=== PATIENT | male | born 1985 | race Caucasian/White ===

== ENCOUNTER 2018-02-08 15:46 | Emergency (ER) | payer SELFPAY ==
--- NOTE | 2018-02-08 16:13 | PDOC ---
Rapid Medical Evaluation Chief Complaint: Injury Time Seen by Provider: 02/08/18 16:09 Medical Evaluation: Allergies Allergy/AdvReac Type Severity Reaction Status Date / Time No Known Allergies Allergy Verified 02/08/18 16:08 02/08/18 16:09 The patient presents with a chief complaint of: Chabnging tire and jorge alberto got loose and landed on his finger, right hand, index and middle finger. two days ago incident happened. He is a diabetic, the pain is getting worse so he came in for evaluation. Was taking tylenol for pain last dose tuesday. I have performed a brief in-person evaluation of this patient; Pertinent physical exam findings: rigth hand wit6h middle finger swollen, cut, painful to touch, ambulatory, in no respiratory distress I have ordered the following: hand xray. The patient will proceed to the ED for further evaluation.
[2018-02-08 16:14] VITALS: BP 137/89; PULSE 100; TEMP 97.8; BMI 24.7
[2018-02-08] MEDS ORDERED: BACITRACIN 15 GM TUBE TOPICAL OINTMENT ONE (16:46)
[2018-02-08] MEDS ORDERED: DIPHTH,PERTUSS(ACELL),TET 0.5 ML DISP.SYRIN IM ONE ×2 (16:53→17:02)
[2018-02-08] MEDS ORDERED: BACITRACIN 15 GM TUBE TOPICAL OINTMENT TP ONE (16:53)
--- NOTE | 2018-02-08 17:02 | PDOC ---
History of Present Illness - General Chief Complaint: Injury Stated Complaint: FINGER INJURY Time Seen by Provider: 02/08/18 16:09 History Source: Patient Exam Limitations: No Limitations - History of Present Illness Initial Comments: 02/08/18 was changing tire of his car, when the jorge alberto collapsed and crushed his second and third digit of his right distal fingers 2 days ago. used some ice and some Tylenol with minimal resolved. Denies numbness or tingling to fingertips, has not been sensationally painful therefore did not seek attention in the emergency department. Patient has diabetes however has not taken his meds muller for some weeks due to change in living arrangements and move to [place] from [place] his last tetanus status. Severity: reports: mild, moderate Pain Location: reports: upper extremity Associated Symptoms (Fall): denies symptoms Past History - Travel Traveled outside of the country in the last 30 days: No (right second and third digits) Close contact w/someone who was outside of country & ill: No - Past Medical History Allergies/Adverse Reactions: Allergies Allergy/AdvReac Type Severity Reaction Status Date / Time No Known Allergies Allergy Verified 02/08/18 16:08 Home Medications: Ambulatory Orders Metformin HCl [Glucophage] 500 mg PO DAILY #14 tablet 02/08/18 Cardiac Disorders: Yes (HEART MUMMUR) COPD: No DVT: No Dementia: No Diabetes: Yes - Immunization History Immunization Up to Date: Yes - Suicide/Smoking/Psychosocial Hx Smoking History: Current every day smoker Number of Cigarettes Smoked Daily: 10 Information on smoking cessation initiated: No Hx Alcohol Use: No Drug/Substance Use Hx: No Substance Use Type: None Review of Systems - Review of Systems Able to Perform ROS?: Yes Is the patient limited Slovak proficient: Yes Constitutional: Yes: See HPI. No: Symptoms Reported, Fever, Malaise HEENTM: No: Symptoms Reported Respiratory: No: Symptoms reported Musculoskeletal: Yes: Symptoms Reported, See HPI, Joint Pain Integumentary: Yes: Symptoms Reported, See HPI, Bruising Neurological: No: Symptoms reported All Other Systems: Reviewed and Negative *Physical Exam - Vital Signs Last Vital Signs Temp Pulse Resp BP Pulse Ox 97.8 F 100 H 15 137/89 98 02/08/18 16:09 02/08/18 16:09 02/08/18 16:09 02/08/18 16:09 02/08/18 16:09 - Physical Exam General Appearance: Yes: Nourished, Appropriately Dressed, Apparent Distress, Mild Distress HEENT: positive: MAYCO, Normal ENT Inspection, TMs Normal Respiratory/Chest: positive: Lungs Clear, Normal Breath Sounds Gastrointestinal/Abdominal: positive: Soft Musculoskeletal: positive: Normal Inspection. negative: Vertebral Tenderness Extremity: positive: Normal Capillary Refill, Normal Range of Motion Integumentary: positive: Ecchymosis, Bruising, Other (patient with swollen, healing ecchymotic distal right second and third distal digits with less than 50 % subungual hematomas. Range of motion is intact and patient reports sensation intact.) Neurologic: positive: cvicu nurse II-XII NML intact, Fully Oriented, Alert, Normal Mood/ Affect, Normal Response, Motor Strength 5/5 Progress Note - Progress Note Progress Note: Crush injury with distal tuft comminuted fractures of digits 2 and 3 of right hand with 50% or less subungual hematomas to both wounds. As incident occurred 48 hours ago and there is no evidence of infection, will hold antibiotics RX. Tetanus/diphtheria/pertussis booster was updated today. *DC/Admit/Observation/Transfer Diagnosis at time of Disposition: Crush injury to finger Qualifiers: Encounter type: initial encounter Qualified Code(s): S67.10XA - Crushing injury of unspecified finger(s), initial encounter - Discharge Dispostion Disposition: HOME Condition at time of disposition: Stable Admit: No - Prescriptions Prescriptions: Metformin HCl [Glucophage] 500 mg PO DAILY #14 tablet - Referrals - Patient Instructions Printed Discharge Instructions: DI for Crush Injury Additional Instructions: Rest, ice to area on and off for 15 minutes 4-6 times a day Avoid heavy lifting or exercise until pain and swelling is resolved or until further directed Keep area highly elevated to reduce swelling Use splints/Cesar wrap as directed Wash hands 2-3 times daily and reapply bacitracin ointment with splints until healed Turn immediately to emergency Department for worsening redness, swelling, immobility, evidence of infection or fever. Your tetanus/diphtheria/pertussis booster was updated today Followup with orthopedist in one to 2 days if not improving, if significantly improved may wait one week for followup with orthopedist May use ibuprofen 2-200 mg tablets every 6 hours as needed for pain - Post Discharge Activity
== END 2018-02-08 17:21 | disposition home or self-care (01) ==
LOC: JER 15:46
PROC: 2W3JX1Z Immobilization of Right Finger using Splint (ICD-10-PCS; principal; 2018-02-08)
DX: S67.192A Crushing injury of right middle finger, initial encounter (principal); W20.8XXA Other cause of strike by thrown, projected or falling object, initial encounter; Y93.89 Activity, other specified; Y92.9 Unspecified place or not applicable; F17.210 Nicotine dependence, cigarettes, uncomplicated; E11.9 Type 2 diabetes mellitus without complications; R01.1 Cardiac murmur, unspecified
CPT/HCPCS: 73130-TC-RT-FY; 90715; 99281-25

== ENCOUNTER 2018-10-11 19:25 | Emergency (ER) | payer SELFPAY ==
--- NOTE | 2018-10-11 19:43 | PDOC ---
Rapid Medical Evaluation Time Seen by Provider: 10/11/18 19:30 Medical Evaluation: Allergies Allergy/AdvReac Type Severity Reaction Status Date / Time No Known Allergies Allergy Verified 05/06/18 01:58 10/11/18 19:37 I have performed a brief in-person evaluation of this patient. The patient presents with a chief complaint of: upper back pain Pertinent physical exam findings: Lungs CTAB. ~2.5cm superficial avulsion lac to dorsum of right hand. FROM fingers. I have ordered the following: CXR The patient will proceed to the ED for further evaluation. Discharge Disposition - Diagnosis Laceration - Referrals - Patient Instructions - Post Discharge Activity
[2018-10-11 19:44] VITALS: BP 148/86; PULSE 104; TEMP 97.8; BMI 34.7
--- NOTE | 2018-10-11 20:02 | PDOC ---
History of Present Illness - General Chief Complaint: Respiratory Stated Complaint: cough and upper back pain Time Seen by Provider: 10/11/18 19:30 - History of Present Illness Initial Comments: 10/11/18 19:57 33-year-old male with a past medical history significant for type 2 diabetes. He states he's been off his meds for 3 months he recently moved and has been asymptomatic for his diabetes. 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 He also has upper back pain from a cough he's had for 3 days without systemic symptoms Past History - Past Medical History Allergies/Adverse Reactions: Allergies Allergy/AdvReac Type Severity Reaction Status Date / Time No Known Allergies Allergy Verified 10/11/18 19:45 Home Medications: Ambulatory Orders NK [No Known Home Medication] 10/11/18 Cardiac Disorders: Yes (HEART MUMMUR) COPD: No DVT: No Dementia: No Diabetes: Yes (niddm no meds x 1 month ran out) - Immunization History Immunization Up to Date: Yes - Suicide/Smoking/Psychosocial Hx Smoking History: Never smoked Have you smoked in the past 12 months: No Number of Cigarettes Smoked Daily: 10 Information on smoking cessation initiated: No Hx Alcohol Use: No Drug/Substance Use Hx: No Substance Use Type: None Review of Systems - Review of Systems Constitutional: No: Chills, Fever, Malaise, Night Sweats Respiratory: Yes: Cough. No: Shortness of Breath, Wheezing Cardiac (ROS): No: Chest Pain Musculoskeletal: Yes: See HPI, Back Pain, Muscle Pain *Physical Exam - Vital Signs Last Vital Signs Temp Pulse Resp BP Pulse Ox 97.8 F 104 H 16 148/86 100 10/11/18 19:40 10/11/18 19:40 10/11/18 19:40 10/11/18 19:40 10/11/18 19:40 - Physical Exam Comments: 10/11/18 19:58 HEAD: NC/AT EYES: Conjuntiva clear Ears: Canals and TM's normal NOSE: No d/c THROAT: Moist mucous membrances, oral pharanx clear, uvula midline NECK: Supple without adenopathy CARDIAC: S1 S2 LUNGS: CTA Full and Equal breath sounds ABDOMEN: Soft NT ND MS: Full ROM in all joints without edema NEUROLOGIC: No gross sensory or motor deficits, NVID SKIN: Normal color and temperature no lesions or rashes There is a 2 cm soft tissue dermal avulsion at the dorsum of the right hand exposing dermis. No 7 cutaneous fat is exposed. The edges cannot be approximated it is an irregular shaped dermal avulsion. There are no gross sensorimotor deficits in the right hand Medical Decision Making - Medical Decision Making 10/11/18 19:58 Upper respiratory infection and right hand dermal avulsion, I will treat with rest wet-to-dry dressing changes and follow-up with hand surgery and I will provide an internal medicine physician for him to evaluated and reassessed 10/11/18 20:02 X-rays of the chest are normal. X-rays of the hand show old tuft fractures of the second and third fingers *DC/Admit/Observation/Transfer Diagnosis at time of Disposition: Soft tissue avulsion, URI (upper respiratory infection) Diagnosis at time of Disposition: (Ruled Out): Laceration - Discharge Dispostion Disposition: HOME Condition at time of disposition: Stable Decision to Admit order: No - Referrals Referrals: Eric Padilla MD [Staff Physician] - Parker Madden MD [Staff Physician] - - Patient Instructions Printed Discharge Instructions: Common Cold, DI for Viral Upper Respiratory Infection -- Adult Additional Instructions: Return to the emergency room should symptoms worsen or go unresolved. Please follow-up with internal medicine for evaluation of your cough. Hand surgery for wound evaluation of your right hand. To wet-to-dry Varsha changes as you have shown today in the emergency room need should be changed twice a day for the next 3 days please follow-up with hand surgery in 3 days if she cannot follow- up with hand surgery in 3 days return to the emergency room for recheck. Return to the emergency room sooner if problems develop. - Post Discharge Activity
== END 2018-10-11 20:49 | disposition home or self-care (01) ==
LOC: JERFT 19:25
DX: S60.511A Abrasion of right hand, initial encounter (principal); J06.9 Acute upper respiratory infection, unspecified; R01.1 Cardiac murmur, unspecified; E11.9 Type 2 diabetes mellitus without complications
CPT/HCPCS: 71046-TC-FY; 73130-TC-RT-FY; 99281-25

== ENCOUNTER 2018-10-21 21:14 | Emergency (ER) | payer SELFPAY ==
[2018-10-21 21:19] VITALS: BP 169/80; PULSE 96; TEMP 98.5; BMI 33.9
[2018-10-21] MEDS ORDERED: KETOROLAC TROMETHAMINE 60 MG/2 ML VIAL IM ONE (21:30)
[2018-10-21] MEDS ORDERED: KETOROLAC TROMETHAMINE 60 MG/2 ML VIAL ONE (21:36)
--- NOTE | 2018-10-21 21:39 | PDOC ---
History of Present Illness - General Chief Complaint: Back Pain Stated Complaint: BACK PAIN Time Seen by Provider: 10/21/18 21:24 History Source: Patient Exam Limitations: No Limitations - History of Present Illness Initial Comments: 10/21/18 21:30 33 yr male history of back spasms presents to ER with mid back pain for 2-3 months worse with movement and bending down. Pt recently relocated from [place] to [place]. Pt has history of DM, PFO (being monitored) denies fever, chills , neg diarrhea or vomiting. no chest pain. no urinary complaints. Past History - Past Medical History Allergies/Adverse Reactions: Allergies Allergy/AdvReac Type Severity Reaction Status Date / Time No Known Allergies Allergy Verified 10/21/18 21:19 Home Medications: Ambulatory Orders Cyclobenzaprine HCl [Flexeril -] 10 mg PO TID PRN #21 tablet 10/21/18 Naproxen [Naprosyn] 500 mg PO BID PRN #20 tablet 10/21/18 Cardiac Disorders: Yes (HEART MUMMUR) COPD: No DVT: No Dementia: No Diabetes: Yes (niddm no meds x 1 month ran out) - Immunization History Immunization Up to Date: Yes - Suicide/Smoking/Psychosocial Hx Smoking History: Never smoked Have you smoked in the past 12 months: No Number of Cigarettes Smoked Daily: 10 Information on smoking cessation initiated: No Hx Alcohol Use: No Drug/Substance Use Hx: No Substance Use Type: None Trauma Specific PMHX - Complaint Specific PMHX Arthritis: No Back Injury: No Neck Injury: No Hx Sacro Iliac Joint Dysfunction: No Review of Systems - Review of Systems Able to Perform ROS?: Yes Is the patient limited Greenlandic proficient: Yes Constitutional: No: Symptoms Reported HEENTM: No: Symptoms Reported Respiratory: No: Symptoms reported Cardiac (ROS): No: Symptoms Reported ABD/GI: No: Symptoms Reported : No: Symptoms Reported, Flank Pain Musculoskeletal: Yes: Symptoms Reported, Back Pain *Physical Exam - Vital Signs Last Vital Signs Temp Pulse Resp BP Pulse Ox 98.5 F 96 H 16 169/80 100 10/21/18 21:16 10/21/18 21:16 10/21/18 21:16 10/21/18 21:16 10/21/18 21:16 - Physical Exam General Appearance: Yes: Nourished, Appropriately Dressed HEENT: positive: EOMI, MAYCO, Normal ENT Inspection, TMs Normal, Pharynx Normal Neck: positive: Supple. negative: Tender Respiratory/Chest: positive: Lungs Clear, Normal Breath Sounds. negative: Chest Tender Cardiovascular: positive: Regular Rhythm, Regular Rate Gastrointestinal/Abdominal: positive: Normal Bowel Sounds, Soft. negative: Distended Musculoskeletal: positive: Normal Inspection, Muscle Spasm (thoracic paraspinal soft tissue spasm, reproduced with "stretching" bending forward). negative: CVA Tenderness, CVA Tenderness (R), CVA Tenderness (L), Vertebral Tenderness Medical Decision Making - Medical Decision Making 10/21/18 21:32 cc: chronic back pain will give toradol now dc home with flexeril and naprosyn labs and ct abd reviewed from previous visits strict follow up, pt has apt next week with a primary care in [place]. dc inst discussed all questions asked and answered 10/21/18 21:43 *DC/Admit/Observation/Transfer Diagnosis at time of Disposition: Chronic back pain Qualifiers: Back pain location: thoracic back pain Back pain laterality: bilateral Qualified Code(s): M54.6 - Pain in thoracic spine - Discharge Dispostion Disposition: HOME Condition at time of disposition: Good - Prescriptions Prescriptions: Cyclobenzaprine HCl [Flexeril -] 10 mg PO TID PRN #21 tablet PRN Reason: Muscle Spasms Naproxen [Naprosyn] 500 mg PO BID PRN #20 tablet PRN Reason: Back Pain - Referrals - Patient Instructions Additional Instructions: avoid any heavy lifting or bending take the medication as prescribed follow up with your doctor as planned return to ER for any worsening symptoms - Post Discharge Activity
== END 2018-10-21 21:53 | disposition home or self-care (01) ==
LOC: JERFT 21:14
PROC: 3E0233Z Introduction of Anti-inflammatory into Muscle, Percutaneous Approach (ICD-10-PCS; principal; 2018-10-21)
DX: M54.6 Pain in thoracic spine (principal); G89.29 Other chronic pain; E11.9 Type 2 diabetes mellitus without complications; Z91.14 Patient's other noncompliance with medication regimen
CPT/HCPCS: 99281-25

== ENCOUNTER 2018-12-23 17:56 | Emergency (ER) | payer SELFPAY ==
[2018-12-23 18:13] VITALS: BMI 33.9
[2018-12-23] MEDS ORDERED: SODIUM CHLORIDE 0.9% 1000 ML INFUS.BAG IV ONE (19:05)
--- NOTE | 2018-12-23 19:19 | PDOC ---
History of Present Illness - General Chief Complaint: Blood Sugar Problem Stated Complaint: BLOOD SUGAR PROBLEM History Source: Patient Exam Limitations: No Limitations - History of Present Illness Initial Comments: 12/23/18 19:15 33 yo Male with h/o diabetes, here wtih c/o polyuria, polydyspia, blurry vision and c/o abd pain. pt states has been off of his diabetes meds for one month because just moved from [place], didnt have docotr here. was on metformin and janumet, no n/v no mcallister to stool. pt denies cough or chest pain. states he was seen at another hospital and they were concerned for appendicitis. but werent sure. no abx. pain is persistant. Past History - Past Medical History Allergies/Adverse Reactions: Allergies Allergy/AdvReac Type Severity Reaction Status Date / Time No Known Allergies Allergy Verified 12/23/18 18:10 Home Medications: Ambulatory Orders Cyclobenzaprine HCl [Flexeril -] 10 mg PO TID PRN #21 tablet 10/21/18 Naproxen [Naprosyn] 500 mg PO BID PRN #20 tablet 10/21/18 Cardiac Disorders: Yes (HEART MUMMUR) COPD: No DVT: No Dementia: No Diabetes: Yes (niddm no meds x 1 month ran out) - Immunization History Immunization Up to Date: Yes - Suicide/Smoking/Psychosocial Hx Smoking History: Never smoked Have you smoked in the past 12 months: No Number of Cigarettes Smoked Daily: 10 Information on smoking cessation initiated: No Hx Alcohol Use: No Drug/Substance Use Hx: No Substance Use Type: None Review of Systems - Review of Systems Constitutional: No: Chills, Diaphoresis, Fever HEENTM: No: Eye Pain Respiratory: No: Cough, Orthopnea Cardiac (ROS): No: Chest Pain, Edema ABD/GI: Yes: Nausea : Yes: Frequency All Other Systems: Reviewed and Negative *Physical Exam - Vital Signs Last Vital Signs Temp Pulse Resp BP Pulse Ox 98.8 F 115 H 16 176/102 H 98 12/23/18 18:10 12/23/18 18:10 12/23/18 18:10 12/23/18 18:10 12/23/18 18:10 - Physical Exam Comments: 12/23/18 19:18 awake alert lungs clear bilaterally heart rrr no mrg abd soft mild rlq ttp. no rebound no guarding. no cva tendernss. skin warm and dry no rash. alert oriented x 3. Moderate Sedation - Procedure Monitoring Vital Signs: Procedure Monitoring Vital Signs Temperature 98.8 F 12/23/18 18:10 Pulse Rate 115 H 12/23/18 18:10 Respiratory Rate 16 12/23/18 18:10 Blood Pressure 176/102 H 12/23/18 18:10 O2 Sat by Pulse Oximetry (%) 98 12/23/18 18:10 ED Treatment Course - RADIOLOGY Radiology Studies Ordered: Category Date Time Status ABDOMEN & PELVIS CT WITH CONTR [CT] Stat CT Scan 12/23/18 19:05 Ordered Medical Decision Making - Medical Decision Making 12/23/18 19:18 33 yoDM here with sxs of high sugar, abd pain. differential hyperglycemia, dka, dehydration, uti, appendictis. .plan ct a/p labs ua iv hydration. sugar control. pt signed out to oncoming attending, pending labs and ct. if ct unremarkable and sugar normalized can dc with rx for home diabetic meds and fu with resident clinic.
--- NOTE | 2018-12-23 19:46 | PDOC ---
*Physical Exam - Vital Signs Last Vital Signs Temp Pulse Resp BP Pulse Ox 98.8 F 115 H 16 176/102 H 98 12/23/18 18:10 12/23/18 18:10 12/23/18 18:10 12/23/18 18:10 12/23/18 18:10 ED Treatment Course - LABORATORY CBC & Chemistry Diagram: 12/23/18 20:10 12/23/18 20:10 Medical Decision Making - Medical Decision Making 12/23/18 20:59 Received pt on signout. He is from the [place] but he has been in [place] [place] [facility] for 1 year and doesn't take good care of his DM. Today FS is 400s and he has 2+ ketones. He received 1L NSS before my arrival. I will give another L and 10 U reg insulin 12/23/18 22:13 Pt has no rebound and no guarding and he has no abd pain. He has no flank pain. He will not require a CT scan at this time. Pt advised to return for abd pain or fever or RLQ pain. He feels well at this time and has normal labs and normal exam. He is tolerating PO intake and he is hungry at this time. 12/23/18 22:19 Pt states that it has been 2 months that he has been off of his glucophage; states that he works construction and that for a long time he gained weight and was eating unhealthful crap. Now back with a better lifestyle. *DC/Admit/Observation/Transfer Diagnosis at time of Disposition: Diabetes - Discharge Dispostion Disposition: HOME Condition at time of disposition: Improved Decision to Admit order: No - Prescriptions Prescriptions: Metformin HCl [Glucophage] 500 mg PO BID #60 tablet - Referrals - Patient Instructions Printed Discharge Instructions: DI for Hyperglycemia -- Adult - Post Discharge Activity
[2018-12-23 20:17] LABS: EOS % 1.1 % (0-4.5); HEMATOCRIT 43.7 % (35.4-49); HEMOGLOBIN 15.5 GM/dL (11.7-16.9); LYMPH % 27.1 % (8-40); MCH 30.9 pg (25.7-33.7); MCHC 35.4 g/dl (32.0-35.9); MEAN CELL VOLUME 87.5 fl (80-96); MEAN PLT VOLUME 9.4 fl (7.5-11.1); MONO % 6.3 % (3.8-10.2); NEUT % 64.5 % (42.8-82.8); PLATELET COUNT 293 K/MM3 (134-434); RDW 12.5 % (11.9-15.9); WHITE BLOOD COUNT 11.9 K/mm3 (4.0-10.0)
[2018-12-23 20:20] LABS: URINE APPEARANCE CLEAR; URINE BILIRUBIN NEGATIVE (<2.0 mg/dL); URINE COLOR STRAW; URINE GLUCOSE (UA) 3+ (NEGATIVE); URINE KETONE 2+ (NEGATIVE); URINE LEUK ESTERASE NEGATIVE (NEGATIVE); URINE NITRITE NEGATIVE (NEGATIVE); URINE PROTEIN NEGATIVE (NEGATIVE); URINE UROBILINOGEN NEGATIVE mg/dL (0.2-1.0)
[2018-12-23 20:55] LABS: ALBUMIN 4.4 g/dl (3.4-5.0); ALK PHOS 149 U/L (45-117); ANION GAP 10 MMOL/L (8-16); BILIRUBIN,TOTAL 0.7 mg/dL (0.2-1); BLOOD UREA NITROGEN 23 mg/dL (7-18); CALCIUM 8.7 mg/dL (8.5-10.1); CHLORIDE 100 mmol/L (98-107); CO2 24 mmol/L (21-32); CREATININE 1.2 mg/dL (0.55-1.3); POTASSIUM 4.4 mmol/L (3.5-5.1); SGOT/AST 36 U/L (15-37); SGPT/ALT 120 U/L (13-61); SODIUM 133 mmol/L (136-145); TOT PROT 7.6 g/dl (6.4-8.2)
[2018-12-23 20:57] LABS: GLUCOSE,RANDOM 434 mg/dL (74-106)
[2018-12-23] MEDS ORDERED: INSULIN REGULAR HUMAN 100 UNITS/ML *VIAL IVPUSH ONE (20:58)
[2018-12-23] MEDS ORDERED: SODIUM CHLORIDE 0.9% 500 ML INFUS.BAG IV ONE (20:58)
[2018-12-23] MEDS ORDERED: INSULIN REGULAR HUMAN 100 UNITS/ML *VIAL ONE (21:12)
[2018-12-23] MEDS ORDERED: KETOROLAC TROMETHAMINE 30 MG/1 ML VIAL IVPUSH ONE (22:04)
[2018-12-23] MEDS ORDERED: metFORMIN HCL 500 MG TABLET (FP) PO ONE (22:04)
[2018-12-23 22:24] VITALS: BP 141/76; PULSE 90; TEMP 98.5
== END 2018-12-23 23:00 | disposition home or self-care (01) ==
LOC: JER 17:56
PROC: 3E033VG Introduction of Insulin into Peripheral Vein, Percutaneous Approach (ICD-10-PCS; principal; 2018-12-23)
DX: E11.65 Type 2 diabetes mellitus with hyperglycemia (principal); Z79.84 Long term (current) use of oral hypoglycemic drugs; Z91.14 Patient's other noncompliance with medication regimen
CPT/HCPCS: 36415; 80053; 81003; 82962; 85025; 99282-25; J7030

== ENCOUNTER 2019-03-02 22:23 | Emergency (ER) | payer SELFPAY ==
[2019-03-02 22:35] VITALS: BP 133/75; PULSE 91; TEMP 98.1; BMI 28.2
[2019-03-02] MEDS ORDERED: KETOROLAC TROMETHAMINE 30 MG/1 ML VIAL IM ONE (22:42)
[2019-03-02] MEDS ORDERED: KETOROLAC TROMETHAMINE 30 MG/1 ML VIAL ONE (22:46)
--- NOTE | 2019-03-02 22:53 | PDOC ---
History of Present Illness - General Chief Complaint: Back Pain Stated Complaint: BACK PAIN Time Seen by Provider: 03/02/19 22:37 History Source: Patient Exam Limitations: No Limitations - History of Present Illness Initial Comments: 03/02/19 22:51 HISTORY OF PRESENT ILLNESS: 33-year-old male past medical history of back spasms , NIDDM here for evaluation of acute on chronic lower back pain and upper back pain accompanied with moist productive cough. Patient denies any fevers, chills , chest pain, shortness of breath. Patient denies any saddle anesthesia, incontinence of bladder or bowel, urinary retention, history of IV drug use or cancer. No recent travel or sick contacts. PAST MEDICAL HISTORY: see HPI SURGICAL HISTORY: Denies ALLERGIES: No known drug allergies REVIEW OF SYSTEMS General/Constitutional: Denies fever or chills. Denies weakness, weight change. HEENT: Denies change in vision. Denies ear pain or discharge. Denies sore throat. Cardiovascular: Denies chest pain or shortness of breath. Respiratory: see HPI Gastrointestinal: Denies nausea, vomiting, diarrhea or constipation. Denies rectal bleeding. Genitourinary: Denies dysuria, frequency, or change in urination. Musculoskeletal: see HPI Skin and breasts: Denies rash or easy bruising. Neurologic: Denies headache, vertigo, loss of consciousness, or loss of sensation. Psychiatric: Denies depression or anxiety. Endocrine: Denies increased thirst. Denies abnormal weight change. Hematologic/Lymphatic: Denies anemia, easy bleeding, or history of blood clots. Allergic/Immunologic: Denies hives or skin allergy. Denies latex allergy. PHYSICAL EXAM General Appearance: Well-appearing, appropriately dressed. No apparent distress , no intoxication. HEENT: EOMI, PERRLA, normal ENT inspection, normal voice, TMs normal, pharynx normal. No conjunctival pallor. No photophobia, scleral icterus. Neck: Supple. Trachea midline. No tenderness, rigidity, carotid bruit, stridor , lymphadenopathy, or thyromegaly. Respiratory/Chest: Lungs CTAB. No shortness of breath, chest tenderness, respiratory distress, accessory muscle use. No crackles, rales, rhonchi, stridor , wheezing, dullness Cardiovascular: RRR. S1, S2. No JVD, murmur, bradycardia, tachycardia. Musculoskeletal/Extremities: Normal inspection. FROM of all extremities, normal capillary refill. Pelvis Stable. No CVA tenderness. No tenderness to extremities, pedal edema, swelling, erythema or deformity. Lower back diffusely tender without any point tenderness. No palpable muscle spasms noted. Able to perform straight leg raises without difficulty. Neurovascular intact. Integumentary: Appropriate color, dry, warm. No cyanosis, erythema, jaundice or rash Neurologic: predictive maintenance specialist II-XII intact. Fully oriented, alert. Appropriate mood/affect. Motor strength 5/5. No appreciable EOM palsy, facial droop or sensory deficit. 03/03/19 01:15 Past History - Past Medical History Allergies/Adverse Reactions: Allergies Allergy/AdvReac Type Severity Reaction Status Date / Time No Known Allergies Allergy Verified 03/02/19 22:50 Home Medications: Ambulatory Orders Cyclobenzaprine HCl [Flexeril -] 10 mg PO TID PRN #21 tablet 10/21/18 Naproxen [Naprosyn] 500 mg PO BID PRN #20 tablet 10/21/18 Metformin HCl [Glucophage] 500 mg PO BID #60 tablet 12/23/18 Cardiac Disorders: Yes (HEART MUMMUR) COPD: No DVT: No Dementia: No Diabetes: Yes (niddm no meds x 1 month ran out) - Immunization History Immunization Up to Date: Yes - Suicide/Smoking/Psychosocial Hx Smoking History: Never smoked Have you smoked in the past 12 months: No Number of Cigarettes Smoked Daily: 10 Information on smoking cessation initiated: No Hx Alcohol Use: No Drug/Substance Use Hx: No Substance Use Type: None *Physical Exam - Vital Signs Last Vital Signs Temp Pulse Resp BP Pulse Ox 98.1 F 91 H 20 133/75 97 03/02/19 22:32 03/02/19 22:32 03/02/19 22:32 03/02/19 22:32 03/02/19 22:32 ED Treatment Course - RADIOLOGY Radiology Studies Ordered: Category Date Time Status CHEST PA & LAT [RAD] Stat Radiology 03/02/19 22:42 Ordered - Medications Given in the ED: ED Medications Discontinued Medications Generic Name Dose Route Start Last Admin Trade Name Freq PRN Reason Stop Dose Admin Ketorolac Tromethamine 30 mg 03/02/19 22:42 03/02/19 22:50 Toradol Injection - IM 03/02/19 22:43 30 mg ONCE ONE Administration Medical Decision Making - Medical Decision Making 03/02/19 22:52 A/P: 33-year-old male with acute on chronic lower back pain and productive cough with green sputum Chest x-ray to rule out pneumonia Toradol 30 mg IM Reassess 03/02/19 23:23 Chest x-rays read by me: Angles clear. Cardiac silhouette is within normal limits. No focal infiltrations or consolidations noted. No significant change from study performed 10/11/18. Patient reports adequate pain relief after receiving Toradol. Discharge home *DC/Admit/Observation/Transfer Diagnosis at time of Disposition: Chronic back pain Qualifiers: Back pain location: low back pain Back pain laterality: midline Sciatica presence: without sciatica Qualified Code(s): M54.5 - Low back pain URI (upper respiratory infection) Qualifiers: URI type: unspecified viral URI Qualified Code(s): J06.9 - Acute upper respiratory infection, unspecified - Discharge Dispostion Disposition: HOME Condition at time of disposition: Good Decision to Admit order: No - Referrals - Patient Instructions Additional Instructions: Rest. Take Tylenol or Aleve as needed for pain. Follow manufacturers instructions for appropriate dosage. Warm moist heat applied to your back may help alleviate pain. Return to emergency department for discoloration of the foot, numbness or tingling to the foot, worsening pain, or any other concerns. Thank you very much for choosing us to provide your emergent healthcare needs. [place] [place] Tylenol o Aleve segn sea necesario para el dolor. Siga las instrucciones del fabricante para la dosis apropiada. El calor hmedo que se aplica en la espalda puede ayudar a aliviar el dolor. Regrese al departamento de emergencias para la decoloracin del pie, entumecimiento u hormigueo en el pie, empeoramiento del dolor o cualquier otra inquietud. Muchas nancy por elegirnos para satisfacer angeles necesidades de atencin mdica de emergencia. - Post Discharge Activity Forms/Work/School Notes: Back to Work
== END 2019-03-02 23:29 | disposition home or self-care (01) ==
LOC: JER 22:23
PROC: 3E0233Z Introduction of Anti-inflammatory into Muscle, Percutaneous Approach (ICD-10-PCS; principal; 2019-03-02)
DX: J06.9 Acute upper respiratory infection, unspecified (principal); M54.5 Low back pain; G89.29 Other chronic pain; E11.9 Type 2 diabetes mellitus without complications; Z79.84 Long term (current) use of oral hypoglycemic drugs; Z91.14 Patient's other noncompliance with medication regimen
CPT/HCPCS: 71046-TC-FY; 99282-25

== ENCOUNTER 2019-07-20 20:42 | Emergency (ER) | payer SELFPAY ==
[2019-07-20 20:52] VITALS: BP 154/87; PULSE 70; TEMP 99.1; BMI 31.6
--- NOTE | 2019-07-20 21:06 | PDOC ---
History of Present Illness - General Chief Complaint: Chest Pain Stated Complaint: DIFFICULTY BREATHING/CHEST/BACK/PAIN Time Seen by Provider: 07/20/19 21:02 History Source: Patient Exam Limitations: Clinical Condition - History of Present Illness Initial Comments: 07/20/19 21:04 Patient with history of diabetes on metformin present with complaint of one year history of intermittent chest pain which has been worsening the last 3 days. Patient reported chest pain localized to midsternal. Denies nausea, vomiting, dizziness, headache, weakness. Denies numbness or tingling sensation. Patient also reported feeling bloated. Reported last bowel movement this afternoon which was soft. Denies any other symptoms Timing/Duration: other (1 year) Past History - Past Medical History Allergies/Adverse Reactions: Allergies Allergy/AdvReac Type Severity Reaction Status Date / Time No Known Allergies Allergy Verified 07/20/19 21:30 Home Medications: Ambulatory Orders Metformin HCl [Glucophage] 500 mg PO BID #60 tablet 12/23/18 Mag Hydrox/Aluminum Hyd/Simeth [Maalox Advanced Suspension] 30 ml PO Q8H PRN #1 bottle 07/20/19 Naproxen 500 mg PO BID PRN #20 tablet 07/20/19 Cardiac Disorders: Yes (HEART MUMMUR) COPD: No DVT: No Dementia: No Diabetes: Yes (niddm) - Immunization History Immunization Up to Date: Yes - Suicide/Smoking/Psychosocial Hx Smoking History: Current every day smoker Have you smoked in the past 12 months: No Number of Cigarettes Smoked Daily: 20 Information on smoking cessation initiated: Yes Hx Alcohol Use: No Drug/Substance Use Hx: No Substance Use Type: None Review of Systems - Review of Systems Able to Perform ROS?: Yes Is the patient limited Azeri proficient: No Constitutional: No: Chills, Fever, Malaise HEENTM: No: Symptoms Reported, See HPI, Eye Pain, Blurred Vision, Tearing, Recent change in vision, Double Vision, Cataracts, Ear Pain, Ocular Prothesis, Ear Discharge, Nose Pain, Nose Congestion, Tinnitus, Nose Bleeding, Hearing Loss , Throat Pain, Throat Swelling, Mouth Pain, Dental Problems, Difficulty Swallowing, Mouth Swelling, Other Respiratory: No: Symptoms reported, See HPI, Cough, Orthopnea, Shortness of Breath, SOB with Exertion, SOB at Rest, Stridor, Wheezing, Productive cough, Hemoptysis, Other Cardiac (ROS): Yes: Symptoms Reported, See HPI, Chest Pain. No: Edema, Irregular Heart Rate, Lightheadedness, Palpitations, Syncope, Chest Tightness, Other ABD/GI: No: Symptoms Reported, Nausea, Vomiting Integumentary: No: Symptoms Reported Neurological: No: Symptoms reported All Other Systems: Reviewed and Negative *Physical Exam - Vital Signs Last Vital Signs Temp Pulse Resp BP Pulse Ox 99.1 F 70 20 154/87 99 07/20/19 20:49 07/20/19 20:49 07/20/19 20:49 07/20/19 20:49 07/20/19 20:49 - Physical Exam Comments: 07/20/19 21:06 GENERAL: Well developed, well nourished. Awake and alert. No acute distress. HEENT: Normocephalic, atraumatic. PERRLA, EOMI. No conjunctival pallor. Sclera are non-icteric. Moist mucous membranes. Oropharynx is clear. NECK: Supple. Full ROM. CARDIOVASCULAR: Regular rate and rhythm. No murmurs, rubs, or gallops. Distal pulses are 2+ and symmetric. PULMONARY: No evidence of respiratory distress. Lungs clear to auscultation bilaterally. No wheezing, rales or rhonchi. ABDOMINAL: Soft. diffused subjective abdominal discomfort. Non-distended. No rebound or guarding. No organomegaly. Normoactive bowel sounds. MUSCULOSKELETAL Normal range of motion at all joints. EXTREMITIES: No cyanosis. No clubbing. No edema. SKIN: Warm and dry. Normal capillary refill. No rashes. NEUROLOGICAL: Alert, awake, appropriate. Gait is normal without ataxia. PSYCHIATRIC: Cooperative. Good eye contact. Appropriate mood General Appearance: Yes: Nourished, Appropriately Dressed. No: Apparent Distress ED Treatment Course - LABORATORY CBC & Chemistry Diagram: 07/20/19 21:27 07/20/19 21:27 - RADIOLOGY Radiology Studies Ordered: Category Date Time Status CHEST PA & LAT [RAD] Stat Radiology 07/20/19 21:02 Ordered Medical Decision Making - Medical Decision Making 07/20/19 21:05 Patient with history of diabetes on metformin present with complaint of one year history of intermittent chest pain which has been worsening the last 3 days. Patient reported chest pain localized to midsternal. Denies nausea, vomiting, dizziness, headache, weakness. Denies numbness or tingling sensation. Patient also reported feeling bloated. Reported last bowel movement this afternoon which was soft. Denies any other symptoms 07/20/19 21:31 Exam significant for diffuse subjective abdominal discomfort without guarding or rebound otherwise unremarkable exam since mild reproducible midsternal tenderness. No palpable mass. Normal cardio and lung exam.. Patient symptoms likely costochondritis with abdominal bloating versus less likely cardiogenic pain. CBC, CMP and cardiac profile labs ordered. Checks x-ray ordered to evaluate for acute chest pathology. Maalox 30 mL by mouth ordered for abdominal discomfort. Treat based on lab results 07/20/19 22:23 CXR wnl. CBC and chemistry labs wnl. Patient asymptomatic now. Patient was seen 4 months ago for same symptoms and all workup was negative. Patient stable for discharge on naproxen prn for costochondritis with back pains with neurosurgery f/u for chronic back pains. Patient also being referred to f/u with GI for abdominal bloating *DC/Admit/Observation/Transfer Diagnosis at time of Disposition: Costochondral chest pain, Abdominal bloating Chronic back pain Qualifiers: Back pain location: thoracic back pain Back pain laterality: unspecified Qualified Code(s): M54.6 - Pain in thoracic spine; G89.29 - Other chronic pain - Discharge Dispostion Disposition: HOME Condition at time of disposition: Stable Decision to Admit order: No - Prescriptions Prescriptions: Mag Hydrox/Aluminum Hyd/Simeth [Maalox Advanced Suspension] 30 ml PO Q8H PRN #1 bottle PRN Reason: abdominal discomfort Naproxen 500 mg PO BID PRN #20 tablet PRN Reason: pain - Referrals Referrals: Sudarshan Villaseñor MD [Staff Physician] - Travis Amaral MD, FAANS [Staff Physician] - - Patient Instructions Printed Discharge Instructions: DI for Costochondritis Additional Instructions: your labs and chest x-rays was normal. your symptoms is likely from muscle pain. Take prescribed medication as needed for pain. Follow-up with GI Dr. Villaseñor for abdominal pain. Follow-up with orthopedics clinical quality assurance specialist Dr. Amaral for chronic back pains - Post Discharge Activity
[2019-07-20] MEDS ORDERED: MAG HYDROX/AL HYDROX/SIMETH 30 ML UNIT-DOSE CUP PO ONE (21:20)
[2019-07-20] MEDS ORDERED: MAG HYDROX/AL HYDROX/SIMETH 30 ML UNIT-DOSE CUP ONE (21:22)
[2019-07-20 21:34] LABS: BASO % 0.8 % (0-2.0); EOS % 3.3 % (0-4.5); HEMATOCRIT 43.1 % (35.4-49); HEMOGLOBIN 14.3 GM/dL (11.7-16.9); LYMPH % 39.2 % (8-40); MCH 29.3 pg (25.7-33.7); MCHC 33.2 g/dl (32.0-35.9); MEAN CELL VOLUME 88.2 fl (80-96); MEAN PLT VOLUME 8.4 fl (7.5-11.1); MONO % 7.7 % (3.8-10.2); PLATELET COUNT 314 K/MM3 (134-434); RBC 4.89 M/mm3 (4.00-5.60); RDW 13.4 % (11.9-15.9); WHITE BLOOD COUNT 9.7 K/mm3 (4.0-10.0)
[2019-07-20 22:10] LABS: ALBUMIN 3.9 g/dl (3.4-5.0); ALK PHOS 86 U/L (45-117); ANION GAP 7 MMOL/L (8-16); BILIRUBIN,TOTAL 0.4 mg/dL (0.2-1); BLOOD UREA NITROGEN 11.4 mg/dL (7-18); CHLORIDE 110 mmol/L (98-107); CO2 27 mmol/L (21-32); CREATININE 0.9 mg/dL (0.55-1.3); GLUCOSE,RANDOM 141 mg/dL (74-106); LIPASE 189 U/L (73-393); POTASSIUM 3.5 mmol/L (3.5-5.1); SGOT/AST 33 U/L (15-37); SGPT/ALT 68 U/L (13-61); SODIUM 143 mmol/L (136-145); TOT PROT 6.7 g/dl (6.4-8.2)
--- NOTE | 2019-07-21 15:50 | EKG ---
Test Reason : Blood Pressure : / mmHG Vent. Rate : 067 BPM Atrial Rate : 067 BPM P-R Int : 168 ms QRS Dur : 088 ms QT Int : 388 ms P-R-T Axes : 049 028 033 degrees QTc Int : 409 ms NORMAL SINUS RHYTHM RSR' OR QR PATTERN IN V1 SUGGESTS RIGHT VENTRICULAR CONDUCTION DELAY ABNORMAL ECG NO PREVIOUS ECGS AVAILABLE Confirmed by SAI SALCEDO, KATE ([id number]) on 07/21/2019 3:49:50 PM Referred By: Confirmed By:KATE GIBBS MD
== END 2019-07-20 23:09 | disposition home or self-care (01) ==
LOC: JER 20:42
DX: M94.0 Chondrocostal junction syndrome [Tietze] (principal); M54.6 Pain in thoracic spine; G89.29 Other chronic pain; E11.9 Type 2 diabetes mellitus without complications; Z79.84 Long term (current) use of oral hypoglycemic drugs
CPT/HCPCS: 36415; 71046-TC-FY; 80053; 82550; 82553; 83690; 84484; 85025; 93005; 93010; 99283-25

== ENCOUNTER 2020-01-18 21:45 | Emergency (ER) | payer OTHER ==
[2020-01-18] MEDS ORDERED: SODIUM CHLORIDE 1,000 ML IV STA (21:56)
--- NOTE | 2020-01-18 21:56 | PDOC ---
Rapid Medical Evaluation Time Seen by Provider: 01/18/20 21:51 Medical Evaluation: Allergies Allergy/AdvReac Type Severity Reaction Status Date / Time No Known Allergies Allergy Verified 07/20/19 21:30 01/18/20 21:51 CC: BS-600 at home. 30# wt loss over 3 weeks PE: fruity breath. diffuse abdominal pain. No tenderness or guarding. HR-82. RR WNL. Orders: labs, urine Patient will proceed to ED for evaluation. 01/18/20 21:55 Discharge Disposition - Diagnosis Abdominal pain - Referrals - Patient Instructions - Post Discharge Activity
[2020-01-18 21:57] VITALS: BP 156/78; PULSE 82; TEMP 98.2; BMI 29.0
[2020-01-18 23:19] LABS: BASO % 0.9 % (0-2.0); EOS % 1.9 % (0-4.5); HEMATOCRIT 39.9 % (35.4-49); HEMOGLOBIN 13.8 GM/dL (11.7-16.9); MCHC 34.5 g/dl (32.0-35.9); MEAN CELL VOLUME 86.7 fl (80-96); MEAN PLT VOLUME 9.2 fl (7.5-11.1); MONO % 8.9 % (3.8-10.2); NEUT % 53.3 % (42.8-82.8); PLATELET COUNT 283 K/MM3 (134-434); RDW 12.9 % (11.9-15.9); WHITE BLOOD COUNT 8.8 K/mm3 (4.0-10.0)
[2020-01-18 23:21] LABS: VENOUS PC02 42.2 mmHg (38-52); VENOUS PH 7.38 (7.31-7.41); VENOUS PO2 73.9 mmHg (28-48)
[2020-01-19 00:32] LABS: POTASSIUM 4.1 mmol/L (3.5-5.1)
[2020-01-19 00:33] LABS: ALBUMIN 3.7 g/dl (3.4-5.0); BILIRUBIN,TOTAL 0.6 mg/dL (0.2-1)
[2020-01-19] MEDS ORDERED: SODIUM CHLORIDE 0.9% 500 ML INFUS.BAG IV ONE ×2 (00:37→02:08)
--- NOTE | 2020-01-19 00:45 | PDOC ---
History of Present Illness - General Chief Complaint: Blood Sugar Problem Stated Complaint: Blood Sugar Problem Time Seen by Provider: 01/18/20 21:51 - History of Present Illness Initial Comments: The pt is a 34M w/ a history of NIDDM who presents for evaluation of hyperglyemia at home. The pt reports BG >500 at home. Reports that he has not been adhering to a good diet. He reports being compliant with his Metformin for the last month. Endorses polyuria. Denies fevers/chills, chest pain, trouble breathing, abdominal pain, N/V/C/D, dysuria, rash, numbness/tingling, vision changes 01/19/20 04:00 Past History - Past Medical History Allergies/Adverse Reactions: Allergies Allergy/AdvReac Type Severity Reaction Status Date / Time No Known Allergies Allergy Verified 01/18/20 21:57 Home Medications: Ambulatory Orders Metformin HCl [Glucophage] 500 mg PO BID #60 tablet 12/23/18 Mag Hydrox/Aluminum Hyd/Simeth [Maalox Advanced Suspension] 30 ml PO Q8H PRN #1 bottle 07/20/19 Naproxen 500 mg PO BID PRN #20 tablet 07/20/19 Cardiac Disorders: Yes (HEART MUMMUR) COPD: No DVT: No Dementia: No Diabetes: Yes (niddm) - Immunization History Immunization Up to Date: Yes - Psycho Social/Smoking Cessation Hx Smoking History: Former smoker Have you smoked in the past 12 months: Yes Number of Cigarettes Smoked Daily: 20 If you are a former smoker, when did you quit?: 2 months Information on smoking cessation initiated: No Hx Alcohol Use: No Drug/Substance Use Hx: No Substance Use Type: None Review of Systems - Review of Systems Able to Perform ROS?: Yes Comments:: GENERAL/CONSTITUTIONAL: No fever or chills. No weakness HEAD, EYES, EARS, NOSE AND THROAT: No change in vision. No change in hearing. No sore throat CARDIOVASCULAR: No chest pain or shortness of breath RESPIRATORY: Denies cough, hemoptysis GASTROINTESTINAL: No nausea, vomiting, diarrhea or constipation GENITOURINARY: +polyuria MUSCULOSKELETAL: No joint or muscle swelling or pain. No neck or back pain SKIN: No rash NEUROLOGIC: No headache, vertigo, loss of consciousness, or change in strength/ sensation ENDOCRINE: No increased thirst. No abnormal weight change HEMATOLOGIC/LYMPHATIC: No anemia, easy bleeding, or history of blood clots ALLERGIC/IMMUNOLOGIC: No hives or skin allergy 01/19/20 00:44 Is the patient limited Venezuelan proficient: No *Physical Exam - Vital Signs Last Vital Signs Temp Pulse Resp BP Pulse Ox 98.2 F 82 18 156/78 01/18/20 21:52 01/18/20 21:52 01/18/20 21:52 01/18/20 21:52 - Physical Exam GENERAL: Awake, alert, and oriented to person/place/time, in no acute distress HEAD: No signs of trauma, normocephalic, atraumatic EYES: PERRLA, EOMI, sclera anicteric, conjunctiva clear ENT: Hearing grossly normal, nares patent, oropharynx clear without exudates. Moist mucosa LUNGS: No distress, speaks in full sentences, clear to auscultation bilaterally HEART: Regular rate and rhythm, normal S1 and S2, no murmurs appreciated, peripheral pulses normal and equal bilaterally ABDOMEN: Soft, nontender, normoactive bowel sounds. No guarding, no rebound EXTREMITIES: Normal inspection, Normal range of motion, no edema. No clubbing or cyanosis NEUROLOGICAL: Cranial nerves II through XII grossly intact. Normal speech, normal gait, no focal sensorimotor deficits SKIN: Warm, Dry 01/19/20 00:44 ED Treatment Course - LABORATORY CBC & Chemistry Diagram: 01/18/20 23:00 01/18/20 23:00 - ADDITIONAL ORDERS Additional order review: Laboratory Results 01/19/20 01/18/20 01/18/20 00:39 23:00 23:00 VBG pH 7.38 POC VBG pCO2 42.2 POC VBG pO2 73.9 H VBG HCO3 24.2 VBG O2 Sat (Teresa) 94.5 H VBG Base Excess -0.5 Sodium 135 L Potassium 4.1 Chloride 100 Carbon Dioxide 24 Anion Gap 10 BUN 13.0 Creatinine 1.0 Est GFR (CKD-EPI)AfAm 114.11 Est GFR (CKD-EPI)NonAf 98.45 POC Glucometer 365 Random Glucose 491 H* Calcium 9.0 Total Bilirubin 0.6 AST 27 ALT 87 H Alkaline Phosphatase 125 H Total Protein 7.0 Albumin 3.7 01/19/20 01/18/20 00:39 23:00 RBC 4.60 MCV 86.7 MCHC 34.5 RDW 12.9 MPV 9.2 Neutrophils % 53.3 Lymphocytes % 35.0 Monocytes % 8.9 Eosinophils % 1.9 Basophils % 0.9 POC Glucometer 365 - Medications Given in the ED: ED Medications Discontinued Medications Generic Name Dose Route Start Last Admin Trade Name Hill PRN Reason Stop Dose Admin Sodium Chloride 1,000 mls @ 1,000 mls/hr 01/18/20 21:56 01/18/20 22:58 Normal Saline - IV 01/18/20 22:55 1,000 mls/hr .Q1H STA Administration Sodium Chloride 1,000 ml 01/19/20 00:37 01/19/20 00:42 Normal Saline - IV 01/19/20 00:38 1,000 ml ONCE ONE Administration Medical Decision Making - Medical Decision Making The pt is a 34M w/ a history of DM who presents for evaluation of elevated BG at home to 500s Pt reports being compliant with meds (Metformin 500mg PO BID), has not taken night dose ED Course Labs sent IVF Initial BG 491 w/o elevated AG Pt receiving IVF BG improving, will give Insulin 8u IV No leukocytosis No anemia Lytes uremarkable No MEGHAN LFTs unremarkable Pt s/p 3L IVF BG improved to 300 Pt asymptomatic DM teach and diet information provided Plan for D/C w/ PCP f/u Discharge instructions and return precautions given Patient in agreement and verbalized understanding Dispo: Home 01/19/20 04:32 Discharge - Discharge Information Problems reviewed: Yes Clinical Impression/Diagnosis: Hyperglycemia Condition: Stable Disposition: HOME - Admission No - Follow up/Referral - Patient Discharge Instructions Patient Printed Discharge Instructions: Type 2 Diabetes, Heart-Healthy Diet, DI for Hyperglycemia -- Adult Additional Instructions: You were seen in the Emergency Department for evaluation of high blood sugar. You sugar improved after fluids and insulin. Review the handouts provided at discharge. It is important to take your Metformin as directed and it is important to maintain better control over your blood sugar. Follow up with your primary care provider within the week. Be sure to check your blood sugar at least daily. Return to the Emergency Department if you develop fevers, chest pain, trouble breathing, nausea/vomiting, worsening symptoms, or any new/concerning symptoms. Print Language: FRENCH - Post Discharge Activity
[2020-01-19] MEDS ORDERED: KETOROLAC TROMETHAMINE 15 MG/ML VIAL IVPUSH ONE (00:49)
[2020-01-19] MEDS ORDERED: KETOROLAC TROMETHAMINE 15 MG/ML VIAL ONE (01:32)
[2020-01-19] MEDS ORDERED: INSULIN REGULAR HUMAN 100 UNITS/ML *VIAL IVPUSH ONE (02:02)
--- NOTE | 2020-01-19 02:07 | PDOC ---
Documentation entered by Olvin Barkley SCRIBE, acting as scribe for Salvador Martinez DO. Salvador Martinez DO: This documentation has been prepared by the Filippo tenorio Daniel, SCRIBE, under my direction and personally reviewed by me in its entirety. I confirm that the documentation accurately reflects all work, treatment, procedures, and medical decision making performed by me. Attending Attestation - Resident Resident Name: [email or web address] - ED Attending Attestation I have performed the following: I have examined & evaluated the patient, The case was reviewed & discussed with the resident, I agree w/resident's findings & plan, Exceptions are as noted - HPI HPI: 01/19/20 00:51 The patient is a 34 year old male with a past medical history of non insulin dependent diabetes here today with elevated blood sugar, headache, and polyuria. Patient reports that he checked his blood sugar at home and it was over 500. He describes his headache as bilateral, intermittent, and throbbing. He denies any dysuria, hematuria, nausea, vomiting, or fever. Patient also admits to being non compliant with diet. - Physicial Exam PE: 01/19/20 00:53 GENERAL: Awake, alert, and fully oriented, in no acute distress HEAD: No signs of trauma EYES: PERRLA, EOMI, sclera anicteric, conjunctiva clear ENT: Auricles normal inspection, hearing grossly normal, nares patent, oropharynx clear without exudates. Moist mucosa NECK: Normal ROM, supple, no lymphadenopathy, JVD, or masses LUNGS: Breath sounds equal, clear to auscultation bilaterally. No wheezes, and no crackles HEART: Regular rate and rhythm, normal S1 and S2, no murmurs, rubs or gallops ABDOMEN: Soft, nontender, normoactive bowel sounds. No guarding, no rebound. No masses EXTREMITIES: Normal range of motion, no edema. No clubbing or cyanosis. No cords, erythema, or tenderness NEUROLOGICAL: Cranial nerves II through XII grossly intact. Normal speech, normal gait SKIN: Warm, Dry, normal turgor, no rashes or lesions noted. - Medical Decision Making 01/19/20 00:55 Patient is a 34 year old male here with asymptomatic hyperglycemia without acidosis to 500. Will give fluids and insulin and will provide diabetes education and discharge.
[2020-01-19 02:34] LABS: BLOOD UREA NITROGEN 12.8 mg/dL (7-18); TOT PROT 6.8 g/dl (6.4-8.2)
== END 2020-01-19 04:46 | disposition home or self-care (01) ==
LOC: JER 21:45
PROC: 3E0337Z Introduction of Electrolytic and Water Balance Substance into Peripheral Vein, Percutaneous Approach (ICD-10-PCS; principal; 2020-01-18)
PROC: 3E033VG Introduction of Insulin into Peripheral Vein, Percutaneous Approach (ICD-10-PCS; 2020-01-18)
PROC: 3E0333Z Introduction of Anti-inflammatory into Peripheral Vein, Percutaneous Approach (ICD-10-PCS; 2020-01-18)
DX: E11.65 Type 2 diabetes mellitus with hyperglycemia (principal); Z79.84 Long term (current) use of oral hypoglycemic drugs
CPT/HCPCS: 36415; 80053; 82010; 82803; 82962; 85025; 87086; 96361; 96374; 96375; 99284-25; J7030

== ENCOUNTER 2020-05-19 16:14 | Emergency (ER) | payer OTHER ==
[2020-05-19 16:27] VITALS: BP 128/65; PULSE 95; TEMP 98.4; BMI 25.7
== END 2020-05-19 17:29 | disposition home or self-care (01) ==
LOC: JERFT 16:14 → JER 16:14 → JERFT 17:29
DX: M54.6 Pain in thoracic spine (principal)
CPT/HCPCS: 72070-TC-FY; 72100-TC-FY; 99284-25

== ENCOUNTER 2021-03-26 18:07 | Emergency (ER) | payer OTHER ==
[2021-03-26 18:19] VITALS: BMI 25.8
[2021-03-26] MEDS ORDERED: morphine CARPU-JECT 4 MG/1 ML DISP.SYRIN IVPUSH ONE (18:50)
[2021-03-26] MEDS ORDERED: METOCLOPRAMIDE HCL INJECTION 10 MG/2 ML VIAL IVPUSH ONE (18:50)
[2021-03-26] MEDS ORDERED: SODIUM CHLORIDE 1,000 ML IV STA (18:50)
[2021-03-26] MEDS ORDERED: morphine SULFATE 4 MG/ML VIAL ONE (19:29)
[2021-03-26] MEDS ORDERED: METOCLOPRAMIDE HCL INJECTION 10 MG/2 ML VIAL ONE ×2 (19:29→19:32)
[2021-03-26 19:40] LABS: EOS % 2.4 % (0-4.5); HEMATOCRIT 43.1 % (35.4-49); HEMOGLOBIN 14.6 GM/dL (11.7-16.9); LYMPH % 32.9 % (8-40); MCHC 33.8 g/dl (32.0-35.9); MEAN CELL VOLUME 88.8 fl (80-96); MEAN PLT VOLUME 8.2 fl (7.5-11.1); MONO % 8.5 % (3.8-10.2); NEUT % 55.2 % (42.8-82.8); PLATELET COUNT 359 K/MM3 (134-434); RBC 4.86 M/mm3 (4.00-5.60); RDW 13.3 % (11.9-15.9); WHITE BLOOD COUNT 10.2 K/mm3 (4.0-10.0)
[2021-03-26 19:50] LABS: PH,URINE 5.5 (5.0-8.0); URINE APPEARANCE CLOUDY; URINE BILIRUBIN NEGATIVE (NEGATIVE); URINE COLOR YELLOW; URINE GLUCOSE (UA) NEGATIVE (NEGATIVE); URINE KETONE TRACE (NEGATIVE); URINE LEUK ESTERASE NEGATIVE (NEGATIVE); URINE NITRITE NEGATIVE (NEGATIVE); URINE PROTEIN NEGATIVE (NEGATIVE); URINE UROBILINOGEN 0.2 mg/dL (0.2-1.0)
[2021-03-26 19:57] LABS: CHLORIDE 111 mmol/L (98-107); SODIUM 143 mmol/L (136-145)
[2021-03-26 19:59] LABS: CALCIUM 8.9 mg/dL (8.5-10.1)
[2021-03-26 20:00] LABS: CO2 26 mmol/L (21-32); GLUCOSE,RANDOM 86 mg/dL (74-106)
[2021-03-26 20:01] LABS: ANION GAP 6 MMOL/L (8-16); LIPASE 150 U/L (73-393)
[2021-03-26 20:02] LABS: SGPT/ALT 93 U/L (13-61)
[2021-03-26 20:04] LABS: BILIRUBIN,TOTAL 0.6 mg/dL (0.2-1); CREATININE 1.3 mg/dL (0.55-1.3); SGOT/AST 36 U/L (15-37); TOT PROT 7.1 g/dl (6.4-8.2)
[2021-03-26 20:05] LABS: ALK PHOS 81 U/L (45-117)
[2021-03-26 23:30] VITALS: BP 139/66; PULSE 89; TEMP 97.5
== END 2021-03-26 23:38 | disposition home or self-care (01) ==
LOC: JER 18:07
PROC: 3E033GC Introduction of Other Therapeutic Substance into Peripheral Vein, Percutaneous Approach (ICD-10-PCS; principal; 2021-03-26)
PROC: 3E033NZ Introduction of Analgesics, Hypnotics, Sedatives into Peripheral Vein, Percutaneous Approach (ICD-10-PCS; 2021-03-26)
PROC: 3E0337Z Introduction of Electrolytic and Water Balance Substance into Peripheral Vein, Percutaneous Approach (ICD-10-PCS; 2021-03-26)
DX: R10.84 Generalized abdominal pain (principal); A08.39 Other viral enteritis
CPT/HCPCS: 36415; 71046-TC-FY; 74177-TC; 80053; 81003; 82550; 83690; 84484; 85025; 87086; 93005; 93010; 99285-25; C9803; Q9967; U0003; U0005

== ENCOUNTER 2021-10-06 05:21 | Emergency (ER) | payer OTHER ==
[2021-10-06 05:35] VITALS: BMI 30.7
[2021-10-06] MEDS ORDERED: ACETAMINOPHEN 1000 MG/100 ML VIAL IVPB ONE (05:52)
[2021-10-06] MEDS ORDERED: SODIUM CHLORIDE 0.9% 500 ML INFUS.BAG IV ONE (05:52)
[2021-10-06 07:06] LABS: EOS % 2.1 % (0-4.5); HEMATOCRIT 44.8 % (35.4-49); HEMOGLOBIN 15.3 GM/dL (11.7-16.9); LYMPH % 30.3 % (8-40); MCH 29.5 pg (25.7-33.7); MCHC 34.3 g/dl (32.0-35.9); MEAN CELL VOLUME 86.1 fl (80-96); MEAN PLT VOLUME 8.9 fl (7.5-11.1); MONO % 7.1 % (3.8-10.2); NEUT % 59.5 % (42.8-82.8); PLATELET COUNT 317 10^3/uL (134-434); RDW 12.9 % (11.9-15.9); WHITE BLOOD COUNT 16.3 K/mm3 (4.0-10.0)
[2021-10-06 07:23] LABS: CHLORIDE 104 mmol/L (98-107); SODIUM 138 mmol/L (136-145)
[2021-10-06 07:26] LABS: ANION GAP 7 MMOL/L (8-16); BLOOD UREA NITROGEN 12.4 mg/dL (7-18); CO2 28 mmol/L (21-32); GLUCOSE,RANDOM 229 mg/dL (74-106); LIPASE 215 U/L (73-393)
[2021-10-06 07:27] LABS: ALBUMIN 3.7 g/dl (3.4-5.0)
[2021-10-06 07:29] LABS: SGOT/AST 26 U/L (15-37); SGPT/ALT 72 U/L (13-61)
[2021-10-06 07:31] LABS: BILIRUBIN,TOTAL 0.4 mg/dL (0.2-1); TOT PROT 6.8 g/dl (6.4-8.2)
[2021-10-06 07:32] LABS: ALK PHOS 107 U/L (45-117)
[2021-10-06 12:15] VITALS: BP 131/72; PULSE 80; TEMP 98.4
[2021-10-06 12:39] LABS: PH,URINE 5.5 (5.0-8.0); URINE APPEARANCE CLEAR; URINE BILIRUBIN NEGATIVE (NEGATIVE); URINE COLOR YELLOW; URINE GLUCOSE (UA) NEGATIVE (NEGATIVE); URINE KETONE NEGATIVE (NEGATIVE); URINE LEUK ESTERASE NEGATIVE (NEGATIVE); URINE NITRITE NEGATIVE (NEGATIVE); URINE PROTEIN TRACE (NEGATIVE); URINE UROBILINOGEN 0.2 mg/dL (0.2-1.0)
== END 2021-10-06 12:28 | disposition home or self-care (01) ==
LOC: JER 05:21
PROC: 3E033NZ Introduction of Analgesics, Hypnotics, Sedatives into Peripheral Vein, Percutaneous Approach (ICD-10-PCS; principal; 2021-10-06)
DX: R10.11 Right upper quadrant pain (principal)
CPT/HCPCS: 36415; 71045-TC-FY; 74177-TC; 76705-TC; 80053; 81003; 82550; 83690; 84484; 85025; 87086; 93005; 93010; 99285-25; J0131; Q9967

== ENCOUNTER 2022-02-13 16:28 | Emergency (ER) | payer OTHER ==
[2022-02-13 16:33] VITALS: BP 154/82; PULSE 79; TEMP 98.7; BMI 30.7
== END 2022-02-13 17:38 | disposition home or self-care (01) ==
LOC: JERFT 16:28 → JER 16:28 → JERFT 17:38
PROC: 0HQ1XZZ Repair Face Skin, External Approach (ICD-10-PCS; principal; 2022-02-13)
DX: S01.81XA Laceration without foreign body of other part of head, initial encounter (principal); W22.8XXA Striking against or struck by other objects, initial encounter
CPT/HCPCS: 99282-25

== ENCOUNTER 2022-02-20 18:31 | Emergency (ER) | payer OTHER ==
[2022-02-20 18:40] VITALS: BP 151/80; PULSE 82; TEMP 98; BMI 29.9
== END 2022-02-20 19:56 | disposition home or self-care (01) ==
LOC: JERFT 18:31 → JER 18:31 → JERFT 19:56
DX: Z48.02 Encounter for removal of sutures (principal)
CPT/HCPCS: 99281-25

== ENCOUNTER → 2022-06-14 | Emergency (ER) | payer OTHER ==
[~2022-06-14] MED LIST: SODIUM CHLORIDE 0.9% 500 ML INFUS.BAG IV ONE
[2022-06-14 17:37] VITALS: BP 140/78; PULSE 111; TEMP 98.4; BMI 21.4
== END | disposition left against medical advice (07) ==
LOC: JER 17:14
DX: R73.9 Hyperglycemia, unspecified (principal)
CPT/HCPCS: 82962; 99284-25

== ENCOUNTER 2023-06-17 20:37 | Emergency (ER) | payer OTHER ==
[2023-06-17 20:45] VITALS: BP 155/89; PULSE 93; RESP 20; TEMP 98.8; BMI 27.9
[2023-06-17 22:16] LABS: PH,URINE 7.5 (5.0-8.0); URINE APPEARANCE CLEAR; URINE BILIRUBIN NEGATIVE (NEGATIVE); URINE COLOR YELLOW; URINE GLUCOSE (UA) 3+ (NEGATIVE); URINE KETONE NEGATIVE (NEGATIVE); URINE LEUK ESTERASE NEGATIVE (NEGATIVE); URINE NITRITE NEGATIVE (NEGATIVE); URINE PROTEIN NEGATIVE (NEGATIVE); URINE UROBILINOGEN 0.2 mg/dL (0.2-1.0)
[2023-06-17 22:17] LABS: EOS % 2.6 % (0-4.5); HEMATOCRIT 41.6 % (35.4-49); LYMPH % 32.4 % (8-40); MCH 29.9 pg (25.7-33.7); MCHC 33.6 g/dl (32.0-35.9); MEAN CELL VOLUME 89.1 fl (80-96); MEAN PLT VOLUME 8.5 fl (7.5-11.1); MONO % 7.4 % (3.8-10.2); NEUT % 56.6 % (42.8-82.8); PLATELET COUNT 353 10^3/uL (134-434); RBC 4.67 M/mm3 (4.00-5.60); RDW 12.6 % (11.9-15.9); WHITE BLOOD COUNT 8.3 K/mm3 (4.0-10.0)
[2023-06-17 22:38] LABS: POTASSIUM 4.2 mmol/L (3.5-5.1)
[2023-06-17 22:40] LABS: ALBUMIN 3.7 g/dl (3.4-5.0); BLOOD UREA NITROGEN 12.8 mg/dL (7-18); CALCIUM 8.9 mg/dL (8.5-10.1)
[2023-06-17 22:43] LABS: CREATININE 0.8 mg/dL (0.55-1.3)
[2023-06-17 22:45] LABS: BILIRUBIN,TOTAL 0.5 mg/dL (0.2-1); TOT PROT 6.8 g/dl (6.4-8.2)
[2023-06-17 23:16] LABS: SYPHILIS W/ RPR CONF NON-REACTIVE (NONREACTIVE)
[2023-06-17 23:45] LABS: HIV INTERPRETATION NEGATIVE (NEGATIVE)
[2023-06-18] MEDS ORDERED: ACETAMINOPHEN 500 MG TABLET (FP) PO ONE (00:10)
[2023-06-18] MEDS ORDERED: ACETAMINOPHEN 500 MG TABLET (FP) ONE (00:12)
== END 2023-06-18 00:16 | disposition left against medical advice (07) ==
LOC: JER 20:37
DX: R10.31 Right lower quadrant pain (principal); R10.32 Left lower quadrant pain; R30.0 Dysuria
CPT/HCPCS: 36415; 74176-TC; 80053; 81003; 85025; 86780; 87086; 87389; 87491; 87591; 99284-25

== ENCOUNTER 2023-11-04 01:27 | Emergency (ER) | payer OTHER ==
[2023-11-04 01:36] VITALS: BP 149/90; PULSE 114; RESP 20; TEMP 97.9; BMI 30.2
== END 2023-11-04 01:40 | disposition left against medical advice (07) ==
LOC: JER 01:27
DX: M54.50 Low back pain, unspecified (principal)
CPT/HCPCS: 99281-25